=== PATIENT | female | born 2000 | race African-American/Black ===

== ENCOUNTER 2020-04-08 07:39 | Inpatient (IN) | payer MEDICAID ==
[~2020-04-08] VITALS: Ht 162.6 cm; Wt 55.5 kg
[2020-04-08 08:40] LABS: BASOPHILS % (AUTO) 0.6 % (0.0-2.0); HEMOGLOBIN 13.4 g/dL (12.0-16.0); LYMPHOCYTES # (AUTO) 1.6 K/uL (1.0-4.8); LYMPHOCYTES % (AUTO) 29.3 % (22.0-44.0); MEAN CORPUSCULAR HEMOGLOBIN 28.9 pg (26.0-34.0); MEAN CORPUSCULAR HGB CONC 32.7 G/dL (31.0-37.0); MEAN CORPUSCULAR VOLUME 88 fL (80-100); MONOCYTES # (AUTO) 0.5 K/uL (0.1-1.0); MONOCYTES % (AUTO) 8.9 % (2.0-9.0); NEUTROPHILS # (AUTO) 3.3 K/uL (1.8-7.7); NEUTROPHILS % (AUTO) 59.2 % (40.0-70.0); PLATELET COUNT (AUTO) 205 K/uL (150-450); RED BLOOD CELL COUNT(AUTO) 4.64 MIL/uL (4.00-5.20); RED CELL DISTRIBUTION WIDTH 12.4 % (11.5-14.5)
[2020-04-08 08:49] LABS: ANION GAP 8 mmol/L (8-16); CALCIUM, TOTAL 9.2 mg/dL (8.8-10.5); CARBON DIOXIDE 29 mmol/L (22-29); CHLORIDE 104 mmol/L (98-107); CREATININE 0.83 mg/dL (0.60-1.30); GLOMERULAR FILTR. RATE CALC > 60 mL/min (>60); GLUCOSE,RANDOM 80 mg/dL (70-110); POTASSIUM 4.8 mmol/L (3.5-5.1); SODIUM SERUM 141 mmol/L (136-145); UREA NITROGEN, BLOOD 11 mg/dL (7-18)
[2020-04-08 09:00] LABS: ALANINE AMINOTRANSFERASE 22 U/L (12-78); ALBUMIN 4.3 g/dL (3.4-5.0); ALKALINE PHOSPHATASE 93 U/L (46-116); ASPARTATE AMINOTRANSFERASE 14 U/L (15-37); BILIRUBIN,TOTAL 0.5 mg/dL (0.1-1.0); HCG,QUANTITATIVE < 1 mIU/mL (0-6)
[2020-04-08 10:17] LABS: COVID AG,FIA SOURCE NASOPHARYNGEAL
[2020-04-08 10:22] LABS: AMPHET/METH SCREEN,URINE NEGATIVE (NEGATIVE); BARBITURATE SCREEN, URINE NEGATIVE (NEGATIVE); BENZODIAZEPINES SCREEN,URINE NEGATIVE (NEGATIVE); CANNABINOID SCREEN,URINE POSITIVE (NEGATIVE); COCAINE SCREEN,URINE NEGATIVE (NEGATIVE); METHADONE SCREEN, URINE NEGATIVE (NEGATIVE); OPIATE SCREEN,URINE NEGATIVE (NEGATIVE)
[2020-04-08 10:23] LABS: PHENCYCLIDINE SCREEN,URINE NEGATIVE (NEGATIVE)
[2020-04-08] MEDS ORDERED: HALOPERIDOL 5 MG TABLET PO PRN (10:30)
[2020-04-08] MEDS ORDERED: ZOLPIDEM TARTRATE 10 MG TABLET PO PRN (10:30)
[2020-04-08] MEDS ORDERED: PRAZ2CAP2 PO (11:51)
[2020-04-08] MEDS ORDERED: MELA1TAB28 PO (11:51)
[2020-04-08] MEDS ORDERED: SERT-158 PO (11:51)
[2020-04-08 14:41] VITALS: BP 134/63
[2020-04-08] MEDS ORDERED: INFLUENZA VIRUS VACCINE QVS 2020-21 (6MO+)/PF 60 MCG/0.5 ML SYRINGE IM ONE (15:30)
[2020-04-08 16:01] VITALS: BP 101/62
[2020-04-08] MEDS: LORazepam 2 MG TABLET PO PRN (16:16)
[2020-04-09 05:15] VITALS: BP 118/71
[2020-04-09] MEDS ORDERED: CloNIDine HCL 0.1 MG TABLET PO PRN (07:45)
[2020-04-09] MEDS ORDERED: ACETAMINOPHEN 325 MG TABLET PO PRN (07:45)
[2020-04-09] MEDS ORDERED: NICOTINE 14 MG/24 HOUR PATCH TD PRN (07:45)
[2020-04-09] MEDS ORDERED: DOCUSATE SODIUM 100 MG CAPSULE PO PRN (07:45)
[2020-04-09] MEDS ORDERED: LOPERAMIDE HCL 2 MG CAPSULE PO PRN (07:45)
[2020-04-09] MEDS ORDERED: ALBUTEROL SULFATE HFA 90 MCG/PUFF 8 GM INHALER IH PRN (07:45)
[2020-04-09] MEDS ORDERED: MAGNESIUM HYDROXIDE SUSPENSION 30 ML UDCUP PO PRN (07:45)
[2020-04-09] MEDS ORDERED: PETROLATUM,WHITE 28 GM JELLY TP PRN ×2 (07:45→08:30)
[2020-04-09] MEDS ORDERED: MAG HYDROX/AL HYDROX/SIMETH ES 30 ML SUSPENSION UDCUP PO PRN (07:45)
[2020-04-09] MEDS ORDERED: ONDANSETRON HCL 4 MG TABLET PO PRN (07:45)
[2020-04-09] MEDS ORDERED: IBUPROFEN 400 MG TABLET PO PRN (07:45)
[2020-04-09] MEDS ORDERED: GuaiFENesin/D-METHORPHAN [SUGAR-FREE] 200-20MG/10 ML SYRUP UDCUP PO PRN (07:45)
[2020-04-09 08:03] VITALS: BP 122/84
[2020-04-09] MEDS: AmLODIPine BESYLATE 2.5 MG TABLET PO SCH (08:09)
[2020-04-09] MEDS: LORazepam 2 MG TABLET PO PRN ×2 (08:10→16:09)
[2020-04-09] MEDS: RisperiDONE 2 MG TABLET PO SCH ×2 (10:58→16:09)
[2020-04-09] MEDS: SERTRALINE HCL 100 MG TABLET PO SCH (10:58)
[2020-04-09 16:14] VITALS: BP 105/60
[2020-04-10 02:24] VITALS: BP 100/66
[2020-04-10 08:09] VITALS: BP 106/60
[2020-04-10] MEDS: SERTRALINE HCL 100 MG TABLET PO SCH (08:13)
[2020-04-10] MEDS: AmLODIPine BESYLATE 2.5 MG TABLET PO SCH (08:13)
[2020-04-10] MEDS: RisperiDONE 2 MG TABLET PO SCH ×2 (08:13→16:18)
[2020-04-10 08:14] VITALS: BP 101/57
[2020-04-10 14:00] VITALS: BP 110/68
[2020-04-10 16:26] VITALS: BP 102/72
[2020-04-11 00:29] VITALS: BP 100/71
[2020-04-11] MEDS: AmLODIPine BESYLATE 2.5 MG TABLET PO SCH (08:09)
[2020-04-11] MEDS: SERTRALINE HCL 100 MG TABLET PO SCH (08:09)
[2020-04-11] MEDS: RisperiDONE 2 MG TABLET PO SCH ×2 (08:09→16:58)
[2020-04-11 08:16] VITALS: BP 121/67
[2020-04-11 16:05] VITALS: BP 110/68
[2020-04-11 16:08] VITALS: BP 117/68
[2020-04-11] MEDS: LORazepam 2 MG TABLET PO PRN (16:58)
[2020-04-12 00:10] VITALS: BP 110/69
[2020-04-12] MEDS ORDERED: SERT-162 PO (07:50)
[2020-04-12] MEDS ORDERED: RISP2TAB76 PO (07:50)
[2020-04-12] MEDS ORDERED: AMLO2.5T96 PO (07:50)
[2020-04-12 08:16] VITALS: BP 120/71
[2020-04-12] MEDS: SERTRALINE HCL 100 MG TABLET PO SCH (08:21)
[2020-04-12] MEDS: RisperiDONE 2 MG TABLET PO SCH (08:21)
[2020-04-12] MEDS: AmLODIPine BESYLATE 2.5 MG TABLET PO SCH (08:22)
== END 2020-04-12 10:05 | disposition home or self-care (01) | DRG 754 ==
LOC: EMS 07:39 → B3A 12:54
PROVIDERS: ADMIT Psychiatry & Neurology Psychiatry; ATTEND Psychiatry & Neurology Psychiatry
DX: F32.9 Major depressive disorder, single episode, unspecified (principal); F43.10 Post-traumatic stress disorder, unspecified; F12.90 Cannabis use, unspecified, uncomplicated; R45.851 Suicidal ideations; I10 Essential (primary) hypertension; G47.00 Insomnia, unspecified; Z20.822 Contact with and (suspected) exposure to COVID-19; G44.209 Tension-type headache, unspecified, not intractable; R10.13 Epigastric pain; Z91.410 Personal history of adult physical and sexual abuse
CPT/HCPCS: 87426; 99285; G0480